=== PATIENT | female | born 1985 | race Caucasian/White ===

== ENCOUNTER 2022-03-13 21:29 | Inpatient (IN) ==
[2022-03-13] MEDS ORDERED: Famotidine 20 MG/2 ML VIAL IVP ONE (21:36)
[2022-03-13] MEDS ORDERED: Ringers Solution, Lactated 1,000 ML IVC ONE (21:36)
[2022-03-13] MEDS ORDERED: CeFAZolin 2,000 MG/120 ML BAG IVPB ONE (21:36)
[2022-03-13] MEDS ORDERED: Metoclopramide 10 MG/2 ML VIAL IVP ONE (21:36)
[2022-03-13] MEDS ORDERED: Oxytocin 30 UNIT/503 ML BAG IVC SCH (21:45)
[2022-03-13] MEDS ORDERED: *HR* FentaNYL (PF) 100 MCG/2 ML VIAL ONE (21:49)
[2022-03-13] MEDS ORDERED: *HR* Morphine Sulfate/PF 10 MG/10 ML AMPUL ONE (21:49)
[2022-03-13] MEDS ORDERED: EPHEDrine sulfate 50 MG/10 ML VIAL IVP ONE (21:50)
[2022-03-13] MEDS ORDERED: *HR* Midazolam HCl 2 MG/2 ML VIAL ONE (21:50)
[2022-03-13] MEDS ORDERED: Ondansetron 4 MG/2 ML VIAL ONE (21:51)
[2022-03-13] MEDS ORDERED: Ringers Solution, Lactated 1,000 ML ONE (21:52)
[2022-03-13 21:58] LABS: Basophils # 0.1 K/mcL (0.0-0.2); Basophils % 0.3 %; Eosinophils # 0.1 K/mcL (0.0-0.6); Eosinophils % 0.2 %; Hematocrit 42.9 % (35.3-44.9); Hemoglobin 14.6 g/dL (11.5-15.4); Immature Granulocytes % 0.9 % (0-4); Lymphocytes # 2.2 K/mcL (0.6-4.6); Lymphocytes % 10.2 %; Mean Corpuscular Hemoglobin 29.9 pg (28.0-33.3); Mean Corpuscular Volume 87.9 fL (83.0-100.0); Mean Platelet Volume 9.3 fL (9.4-12.4); Monocytes # 0.7 K/mcL (0.0-1.3); Monocytes % 3.3 %; Neutrophils # 18.2 K/mcL (1.6-8.9); Platelet Count 394 K/mcL (140-400); Red Blood Count 4.88 M/mcL (3.82-4.97); Red Cell Distribution Width 12.5 % (11.5-14.5); Segmented Neutrophils % 85.1 %; White Blood Count 21.4 K/mcL (4.3-11.1)
[2022-03-13] MEDS ORDERED: *HR* Oxytocin 10 UNIT/ML VIAL ONE (22:33)
[2022-03-13] MEDS ORDERED: Ketorolac 30 MG/ML VIAL ONE (22:38)
[2022-03-13] MEDS ORDERED: Acetaminophen IV 1,000 MG/100 ML BAG IVPB ONE (22:39)
[2022-03-13] MEDS ORDERED: Acetaminophen IV 1,000 MG/100 ML BAG IVPB PRN (22:50)
[2022-03-13] MEDS ORDERED: *HR* HYDROmorphone PF 0.5 MG/0.5 ML SYRINGE IVP PRN (22:50)
[2022-03-13] MEDS ORDERED: Promethazine 6.25 MG in Water for inj. (sterile) 20 ML IVPB PRN (22:51)
[2022-03-13] MEDS ORDERED: *HR* Labetalol 20 MG/4 ML SYRINGE IVP PRN (22:51)
[2022-03-13] MEDS ORDERED: *HR* Meperidine 25 MG/ML SYRINGE IVP PRN (22:51)
[2022-03-14] MEDS ORDERED: Ondansetron 4 MG/2 ML VIAL IVP PRN (01:35)
[2022-03-14] MEDS ORDERED: Rho Immune Globulin 1,500 UNIT SYRINGE IM ONE (01:35)
[2022-03-14] MEDS ORDERED: Simethicone 80 MG TAB.CHEW PO PRN (01:35)
[2022-03-14] MEDS ORDERED: Metoclopramide 10 MG/2 ML VIAL IVP PRN (01:35)
[2022-03-14] MEDS ORDERED: Ringers Solution, Lactated 1,000 ML IVC SCH (01:35)
[2022-03-14] MEDS ORDERED: Naloxone 0.4 MG/ML INJ IVP PRN (01:35)
[2022-03-14] MEDS ORDERED: Oxytocin 30 UNIT/503 ML BAG IVC SCH (01:35)
[2022-03-14] MEDS: Acetaminophen 325 MG TABLET PO SCH ×4 (01:58→20:49)
[2022-03-14] MEDS: Ibuprofen 600 MG TABLET PO SCH ×4 (01:58→20:49)
[2022-03-14 07:28] LABS: Mean Platelet Volume 9.4 fL (9.4-12.4)
[2022-03-14 07:29] LABS: Hematocrit 33.9 % (35.3-44.9); Hemoglobin 11.5 g/dL (11.5-15.4); Mean Corpuscular HGB Conc 33.9 g/dL (31.6-35.5); Mean Corpuscular Hemoglobin 30.3 pg (28.0-33.3); Mean Corpuscular Volume 89.2 fL (83.0-100.0); Platelet Count 321 K/mcL (140-400); Red Cell Distribution Width 12.5 % (11.5-14.5); White Blood Count 29.4 K/mcL (4.3-11.1)
[2022-03-14] MEDS: metroNIDAZOLE 500 MG TABLET PO SCH ×3 (08:01→20:49)
[2022-03-14] MEDS: Prenatal Vit/FA 1 EACH TABLET PO SCH (08:01)
[2022-03-14] MEDS: cephALEXin 500 MG CAPSULE PO SCH ×3 (08:01→20:49)
[2022-03-14 08:08] LABS: Lymphocytes # 1.8 K/mcL (0.6-4.6); Monocytes # 0.6 K/mcL (0.0-1.3); Neutrophils # 27.1 K/mcL (1.6-8.9); Platelet Estimate Normal (Normal); Reactive Lymphocytes Present (Not Present)
[2022-03-14] MEDS: *HR* OxyCODONE Immed Rel 5 MG TABLET PO PRN ×2 (16:13→22:20)
[2022-03-15] MEDS: Acetaminophen 325 MG TABLET PO SCH ×2 (05:10→12:39)
[2022-03-15] MEDS: Ibuprofen 600 MG TABLET PO SCH ×2 (05:10→12:39)
[2022-03-15 06:14] VITALS: BP 111/71; PULSE 85; TEMP 98.1; O2SAT 98
[2022-03-15] MEDS: *HR* OxyCODONE Immed Rel 5 MG TABLET PO PRN ×2 (06:32→13:28)
[2022-03-15] MEDS: metroNIDAZOLE 500 MG TABLET PO SCH (08:40)
[2022-03-15] MEDS: Prenatal Vit/FA 1 EACH TABLET PO SCH (08:40)
[2022-03-15] MEDS: cephALEXin 500 MG CAPSULE PO SCH (08:40)
== END 2022-03-15 13:55 | disposition home or self-care (01) | DRG 540 ==
LOC: 1NENULAB 21:29 → 1NENUOBS 03-14 01:30
PROVIDERS: ADMIT Obstetrics & Gynecology; ATTEND Obstetrics & Gynecology